=== PATIENT | male | born 1985 ===

== ENCOUNTER 2019-03-29 10:43 | Emergency (ER) | payer SELFPAY ==
[2019-03-29 11:01] VITALS: BP 144/91
--- NOTE | 2019-03-29 11:58 | Emergency Department Report ---
ED Back Pain/Injury HPI - General Chief Complaint: Extremity Problem,Nontraumatic Stated Complaint: L LEG PAIN X 3 DAYS Time Seen by Provider: 03/29/19 11:42 Source: patient Limitations: No Limitations - History of Present Illness Initial Comments: 34 y/o male presents to ED c/o of pain to left SI and lUmbar region that radiates to leg in a burning fashion. Denies Trauma but works with alot of bending and pulling. Denies fever. No loss of bowel or bladder. MD Complaint: back pain -: days(s) (3) Similar Symptoms Previously: Yes Place: home Radiation: buttocks, left leg Severity: mild Quality: burning, sharp Consistency: intermittent Improves With: none Worsens With: movement Associated Symptoms: denies: confusion, weakness, chest pain, numbness, difficulty walking, constipation, abdominal pain, loss of appetite, seizure, shortness of breath, syncope - Related Data Allergies Allergy/AdvReac Type Severity Reaction Status Date / Time No Known Allergies Allergy Verified 03/29/19 10:46 ED Review of Systems ROS: Stated complaint: L LEG PAIN X 3 DAYS Other details as noted in HPI ED Past Medical Hx - Past Medical History Previous Medical History?: No - Surgical History Past Surgical History?: No - Social History Smoking Status: Light Tobacco Smoker Substance Use Type: Alcohol ED Physical Exam - General Limitations: No Limitations - ENT ENT exam: Present: mucous membranes moist - Neck Neck exam: Present: normal inspection - Respiratory Respiratory exam: Present: normal lung sounds bilaterally. Absent: respiratory distress - Cardiovascular Cardiovascular Exam: Present: regular rate, normal rhythm. Absent: systolic murmur, diastolic murmur, rubs, gallop - GI/Abdominal GI/Abdominal exam: Present: soft, normal bowel sounds. Absent: tenderness, guarding - Extremities Exam Extremities exam: Present: normal inspection, full ROM - Back Exam Back exam: Present: tenderness, paraspinal tenderness (tender to the left SI joint. Neg SLF and Jesus Alberto test. Pain wtih palpation of the sciatic region too. Gait is stable. ) - Neurological Exam Neurological exam: Present: alert, oriented X3, CN II-XII intact - Psychiatric Psychiatric exam: Present: normal affect, normal mood ED Course Vital Signs 03/29/19 10:49 Temperature 97.2 F L Pulse Rate 78 Respiratory 16 Rate Blood Pressure 144/91 Blood Pressure 144/91 [Left] O2 Sat by Pulse 98 Oximetry ED Medical Decision Making - Medical Decision Making This patient presents with back pain most consistent with sciatica. Differential diagnoses includes lumbago versus musculoskeletal spasm / strain versus sciatica. No back pain red flags on history or physical. Presentation not consistent with malignancy (lack of history of malignancy, lack of B symptoms), fracture (no trauma, no bony tenderness to palpation), cauda equina (no bowel or urinary incontinence/retention, no saddle anesthesia, no distal weakness), AAA, viscus perforation , pulmonary embolism, renal colic, pyelonephritis (afebrile, no CVAT, no urinary symptoms). Given the clinical picture, no indication for imaging at this time. Plan: pain control, supportive care, reassess Critical care attestation.: If time is entered above; I have spent that time in minutes in the direct care of this critically ill patient, excluding procedure time. ED Disposition Clinical Impression: Sciatica Disposition: MED SCREENING EXAM-LEFT Is pt being admited?: No Does the pt Need Aspirin: No Condition: Stable Instructions: Sciatica (ED), Piriformis Syndrome (ED), Lumbar Radiculopathy (ED) Additional Instructions: Please be sure to follow up with your PCP for further evaluation and treatment of your lower back pain Referrals: [facility] [Provider Group] - 3-5 Days EDDA CAMPOS MD [Staff Physician] - 3-5 Days Print Language: POLISH
== END 2019-03-29 12:58 | disposition left against medical advice (07) ==
LOC: ED 10:43
DX: M54.32 Sciatica, left side (principal); F17.200 Nicotine dependence, unspecified, uncomplicated
CPT/HCPCS: 99282